=== PATIENT | male | born 1975 ===

== ENCOUNTER 2019-01-22 11:35 | Emergency (ER) | payer OTHER ==
[2019-01-22 11:35] VITALS: BMI 29.0
[2019-01-22 11:43] VITALS: TEMP 98; O2SAT 99
--- NOTE | 2019-01-22 12:36 | ED PDOC ---
Lower Extremity Pain/Injury Time Seen by Provider: 01/22/19 12:14 Chief Complaint (Nursing): Lower Extremity Problem/Injury Chief Complaint (Provider): Right Foot Pain History Per: Patient, Imaging Aide ([employer] #[id number]) History/Exam Limitations: no limitations Onset/Duration Of Symptoms: Days (x6) Current Symptoms Are (Timing): Still Present Additional Complaint(s): 43 year old male with pmhx including diabetes and htn presents to the ED for evaluation of stabbing, constant right foot pain and swelling localized to the sole for the past six days associated with increased warmth to the area. Patient states the pain was sudden onset, and denies stepping on anything, skin breaks, injuries, trauma, and fever. He says he has never had pain like this before, making it difficult to ambulate, and is unrelieved with Naproxen, last dose yesterday, and a shot he received at [facility] on initial evaluation. Past Medical History Reviewed: Historical Data, Nursing Documentation, Vital Signs Vital Signs: Last Vital Signs Temp 98 F 01/22/19 11:42 Pulse 107 H 01/22/19 11:42 Resp 18 01/22/19 11:42 BP 120/76 01/22/19 11:42 Pulse Ox 99 01/22/19 11:42 Primary Care Provider: Non [facility] Provider, (Dr. Sousa) - Medical History PMH: Diabetes, HTN, Hypercholesterolemia - Surgical History Surgical History: No Surg Hx - Family History Family History: States: Unknown Family Hx - Social History Current smoker - smoking cessation education provided: No Alcohol: Occasional Drugs: Denies - Immunization History Hx Tetanus Toxoid Vaccination: No Hx Influenza Vaccination: No Hx Pneumococcal Vaccination: No - Home Medications Home Medications: Ambulatory Orders Medication Instructions Recorded Aspirin [Aspirin Chewable] 81 mg PO DAILY 01/16/17 Lisinopril [Zestril] 5 mg PO DAILY #30 tab 01/16/17 Simvastatin 20 mg PO DAILY #30 tablet 01/16/17 MetFORMIN [glucoPHAGE] 1,000 mg PO BID #60 tab 01/17/17 Naproxen 500 mg PO BID PRN #14 tab 01/20/19 Ibuprofen [Motrin Tab] 600 mg PO Q6 PRN #20 tab 01/22/19 traMADol [Ultram] 50 mg PO TID PRN #9 tab 01/22/19 - Allergies Allergies/Adverse Reactions: Allergies Allergy/AdvReac Type Severity Reaction Status Date / Time No Known Allergies Allergy Verified 01/22/19 11:42 Review of Systems ROS Statement: Except As Marked, All Systems Reviewed And Found Negative Constitutional: Negative for: Fever Musculoskeletal: Positive for: Foot Pain (stabbing, constant right foot pain and swelling localized to the sole associated with increased warmth to the area) Skin: Negative for: Other (break in skin) Physical Exam - Reviewed Nursing Documentation Reviewed: Yes Vital Signs Reviewed: Yes - Physical Exam Comments: GENERAL APPEARANCE: Patient is awake, alert, oriented x 3, in no obvious discomfort SKIN: Warm, dry; (-) cyanosis. RIGHT LOWER EXTREMITY: Foot: (+) swelling to all toes, (+) ecchymosis, erythema and warmth to plantar bases of all toes with tenderness to palpation, (+) able to wiggle all toes with pain; there is some white fungus appreciated to interstitial space between 4th and 5th toes, (-) abrasion, (-) lacerations, (-) break in skin integrity. Remainder of RLE: non tender, full ROM. Capillary refill less than 2 seconds. CARDIOVASCULAR: (+) 2+ distal pulses. NEUROLOGIC: (+) distal sensation. - ECG O2 Sat by Pulse Oximetry: 99 (RA) Pulse Ox Interpretation: Normal Medical Decision Making Medical Decision Making: Time: 1228 Initial Impression: infection, less likely gout Initial Plan: --Ultram 50mg PO (pt not driving home) --Right foot XR --Podiatry consult 1330 Spoke with podiatry resident who is agreeable to evaluate patient in ED 1349 XR FINDINGS: BONES: No fracture or lytic lesion. JOINTS: Minimal degenerative arthrosis 1st metatarsal-phalangeal joint. SOFT TISSUES: Normal. OTHER FINDINGS: Tiny inferior calcaneal spur. [place]'s tendon insertional enesthesophyte. IMPRESSION: No fracture or lytic lesion. Minimal 1st metatarsal-phalangeal joint arthrosis Calcaneal spur and enthesophyte 1418 Podiatry resident at bedside. 14:50 compression, surgical shoe and crutches placed by podiatry resident podiatry thinks gout vs stress fracture vs plantar fascia issue, recommends RICE, anti inflammatories [place] [employer] rx for [place], [place], [place] shows no results, will give pt RX for tramadol Discussed results, diagnosis, treatment, return precautions and f/u with pt who is understanding, in agreement and stable for dc Scribe Attestation: Documented by Suzy Rico, acting as a scribe for Cesario Gee PA-C. Provider Scribe Attestation: All medical record entries made by the Scribe were at my direction and personally dictated by me. I have reviewed the chart and agree that the record accurately reflects my personal performance of the history, physical exam, medical decision making, and the department course for this patient. I have also personally directed, reviewed, and agree with the discharge instructions and disposition. Disposition - Clinical Impression Clinical Impression: Foot pain, Foot swelling - Patient ED Disposition Is Patient to be Admitted: No Counseled Patient/Family Regarding: Studies Performed, Diagnosis, Need For Followup, Rx Given - Disposition Referrals: Podiatry Clinic [Outside] Disposition: Routine/Home Disposition Time: 14:56 Condition: STABLE Additional Instructions: Luz Marina por dejarnos cuidar de ti hoy. La atencin mdica de emergencia que recibi hoy se dirigi a bubba sntomas agudos. Si le recetaron algn medicamento, llnelo y tmelo segn las indicaciones. [place] ibuprofeno para el dolor y la inflamacin. [place] Tramadol para empeorar el dolor, no maneje ni ion alcohol cuando lo tome. Los sntomas pueden tardar varios nj en resolverse. Descansa, hielo y eleva tu pierna. Utilice muletas para soportar peso parcial. [place] el peso sobre tu taln. Regrese al Departamento de Emergencias si bubba sntomas empeoran, no mejoran o si tiene otros problemas. Comunquese con jaimes mdico dentro de 2 nj para freddy nueva evaluacin y irene un seguimiento o llame a donnell de los mdicos / clnicas a los que montelongo sido referido y que figuran en el formulario de Informacin de visita al paciente que se incluye en jaimes paquete de renan. Lleve todos los documentos que recibi al momento del renan junto con los medicamentos que est tomando para jaimes visita de seguimiento. Nuestro tratamiento no puede reemplazar la atencin mdica continua por parte de un proveedor de atencin primaria (PCP) fuera del departamento de emergencias. Prescriptions: Ibuprofen [Motrin Tab] 600 mg PO Q6 PRN #20 tab PRN Reason: pain and inflammation traMADol [Ultram] 50 mg PO TID PRN #9 tab PRN Reason: Pain, Severe (8-10) Instructions: Muscle and Bone Pain (DC), Foot Sprain (DC) Forms: [employer] ([place]ian), [facility] ED School/Work Excuse Print Language: [place] ISLANDER - POA Present On Arrival: None
--- NOTE | 2019-01-22 13:53 | RAD ---
Date of service: 01/22/2019 PROCEDURE: Right Foot Radiographs. HISTORY: base of toes swelling nad pain COMPARISON: None. TECHNIQUE: 3 views obtained. FINDINGS: BONES: No fracture or lytic lesion. JOINTS: Minimal degenerative arthrosis 1st metatarsal-phalangeal joint. SOFT TISSUES: Normal. OTHER FINDINGS: Tiny inferior calcaneal spur. [place]'s tendon insertional enesthesophyte. IMPRESSION: No fracture or lytic lesion. Minimal 1st metatarsal-phalangeal joint arthrosis Calcaneal spur and enthesophyte
[2019-01-22 15:04] VITALS: BP 134/72; PULSE 92; RESP 16
--- NOTE | 2019-01-22 15:57 | CP.PCM.CON ---
History of Present Illness - History of Present Illness History of Present Illness: Podiatry consult note for attending Dr. Bukc: 43 year old male patient with PMH of DM seen and evaluated in ED for right foot pain. Patient states that he started to develop pain in his right 2nd toe last Saturday. He states That the pain increased. He states that he went two days ago to [facility] ED where he did X-ray which shows no bone injury and received an injection but the injection didn't help him. He state that the pain is 3/10 when he doesn't walk and increases up to 8/10 with weight bearing. Patient denies any trauma to his left foot. Patient denies any recent F/N/V/C/CP or SOB. She denies any other pedal complaint at this time. PMH: DM. PSH: None. Allergies: NKDA. Social Hx: Smoker 1 cigarette/day since he was 16 y/o, Drink EtOH (4 peers in the weekend). Denies illicit drug use. Review of Systems - Review of Systems Review of Systems: As per HPI - Constitutional Constitutional: As Per HPI Past Patient History - Infectious Disease Hx of Infectious Diseases: None - Past Medical History & Family History Past Medical History?: No - Past Social History Alcohol: Occasional Drugs: Denies - CARDIAC Hx Hypercholesterolemia: Yes Hx Hypertension: Yes - PULMONARY Hx Respiratory Disorders: No - NEUROLOGICAL Hx Neurological Disorder: No - HEENT Hx HEENT Problems: No - RENAL Hx Chronic Kidney Disease: No - ENDOCRINE/METABOLIC Hx Endocrine Disorders: Yes Hx Diabetes Mellitus Type 2: Yes Other/Comment: new onset of Diabetes - HEMATOLOGICAL/ONCOLOGICAL Hx Blood Disorders: No - INTEGUMENTARY Hx Dermatological Problems: No - MUSCULOSKELETAL/RHEUMATOLOGICAL Hx Musculoskeletal Disorders: No Hx Falls: No - GASTROINTESTINAL Hx Gastrointestinal Disorders: No - GENITOURINARY/GYNECOLOGICAL Hx Genitourinary Disorders: No - PSYCHIATRIC Hx Psychophysiologic Disorder: No Hx Substance Use: No - SURGICAL HISTORY Hx Surgeries: No - ANESTHESIA Hx Anesthesia: No Meds Home Medications: Home Medication List Medication Instructions Recorded Confirmed Type Ibuprofen [Motrin Tab] 600 mg PO Q6 PRN #20 tab 01/22/19 Rx traMADol [Ultram] 50 mg PO TID PRN #9 tab 01/22/19 Rx Allergies/Adverse Reactions: Allergies Allergy/AdvReac Type Severity Reaction Status Date / Time No Known Allergies Allergy Verified 01/22/19 11:42 Physical Exam - Constitutional Appears: Well, Non-toxic, No Acute Distress - Head Exam Head Exam: ATRAUMATIC, NORMOCEPHALIC - Extremities Exam Additional comments: Right lower extremity focused exam: Vasc: DP/PT 2/4, Cap refill < 3 seconds, Temp gradient warm to cool from proximal to distal, Moderate non-pitting edema noted. Neuro: Gross and protective sensation intact. Derm: Moderate non-pitting edema noted. Mild ecchymosis noted on the plantar aspect of the 2nd MPJ. no clinical signs of infection appreciated. MSK: Pain with palpation of the 2nd toe ROM, Pain with attempt to load the 2nd MPJ. MMT 5/5 to all groups. - Neurological Exam Neurological exam: Alert, Oriented x3 - Psychiatric Exam Psychiatric exam: Normal Affect, Normal Mood Results - Vital Signs Recent Vital Signs: Last Vital Signs Temp 98 F 01/22/19 15:03 Pulse 92 H 01/22/19 15:03 Resp 16 01/22/19 15:03 BP 134/72 01/22/19 15:03 Pulse Ox 99 01/22/19 15:10 Assessment & Plan - Assessment and Plan (Free Text) Assessment: 23 year old male patient with No PMH seen and evaluated in ED for left 2nd toe pain ? (acute gouty attack/stress fracture/ligament tear) Plan: Patient seen and evaluated Discussed with attending, Dr. Buck. Charts and Vitals reviewed: Afebrile. X-ray right foot reviewed: No bone lesions, Mild arthrosis of the 1st MPJ. Explained to the patient the possibilities of the causes of his foot pain. Applied Acuña compression to the RLE. Patient instructed to keep the Acuña compression C/D/I Patient instructed to be WBAT to the riht heel and to ambulate using crutches in a surgical shoe. Patient educated RICE protocol and instructed to do it. Rx: Ibuprofen and Tramadol to be used for pain and inflammation as prescribed by the ED doctor. Patient expressed verbal understanding Patient to follow up with the podiatry clinic at [facility] after discharge from the ED within 1 week.. Thank you for the consult. - Date & Time Date: 01/22/19 Time: 15:57
== END 2019-01-22 15:00 | disposition home or self-care (01) ==
LOC: H.ER 11:35
DX: M79.671 Pain in right foot (principal); M79.89 Other specified soft tissue disorders; E11.9 Type 2 diabetes mellitus without complications; E78.00 Pure hypercholesterolemia, unspecified; F17.210 Nicotine dependence, cigarettes, uncomplicated; I10 Essential (primary) hypertension; Z79.84 Long term (current) use of oral hypoglycemic drugs